=== PATIENT | male | born 1945 | race Caucasian/White ===

== ENCOUNTER → 2016-08-09 19:48 | Outpatient (CLI) | payer MEDICARE, OTHER ==
[2016-02-09 09:49] VITALS: BMI 28.8
[~2016-08-09 19:48] MED LIST: BAYER CHEWABLE81 MG PO; BETAPACE 80 MG80 MG PO; COMBIGAN OPHT DR5 ML EACH EYE; HYDROCODONE-APA1 TAB PO; NEXIUM40 MG PO; PLAVIX75 MG PO; TOPROL XL25 MG PO; ZETIA10 MG PO; ZYRTEC10 MG PO
== END | disposition home or self-care (01) ==
LOC: D.SLEEP 19:48
DX: G47.33 Obstructive sleep apnea (adult) (pediatric) (principal)

== ENCOUNTER 2017-01-21 05:09 | Day surgery (SDC) | payer MEDICARE, OTHER ==
[2017-01-17 14:46] LABS: BASOPHILS 0.3 % (0-2); EOSINOPHILS 4.9 % (0-7); HEMATOCRIT 41.8 % (42.0-54.0); HEMOGLOBIN 13.9 g/dL (13.5-17.5); IMMATURE GRANULOCYTES 0.3 % (0-5); LYMPHOCYTES 21.2 % (15-50); MCH 30.4 pg (26.0-34.0); MCHC 33.3 g/dL (31.0-37.0); MCV 91.5 fL (80.0-100.0); MEAN PLATELET VOLUME 10.3 fL (7.4-10.4); MONOCYTES 5.9 % (2-11); NEUTROPHILS 67.4 % (40-80); PLATELET COUNT 186 10x3/uL (130-400); RBC 4.57 10x6/uL (4.20-6.10); RDW 13.4 % (11.5-14.5); WBC 6.3 10x3/uL (4.8-10.8)
[2017-01-17 15:05] LABS: CALC OSMOLALITY 281 mosm/kg (275-300); CARBON DIOXIDE 28.7 mmol/L (21.0-32.0); CHLORIDE - SERUM 105 mmol/L (98-107); CREATININE - SERUM 0.8 mg/dL (0.6-1.3); GLUCOSE 112 mg/dL (74-106); POTASSIUM - SERUM 4.2 mmol/L (3.5-5.1); SODIUM 140 mmol/L (136-145); UREA NITROGEN 18 mg/dL (7-18); eGFR NON AFRICAN AMERICAN > 90 mL/min (90-120)
[~2017-01-21] VITALS: Ht 190.5 cm; Wt 106.6 kg
[~2017-01-21 05:09] MED LIST changes: +MAGNESIUM OXID500 MG PO; +PREVACID15 MG PO
[2017-01-21] MEDS ORDERED: FLUTICASONE PRO16 GM NASAL (06:45)
[2017-01-21 06:56] VITALS: BP 123/78; Ht 190.5 cm; Wt 106.6 kg
[2017-01-21] MEDS ORDERED: HYDROCODONE-APA1 TAB PO (08:24)
--- NOTE | 2017-01-21 10:40 | NUR ---
1020--PT VOIDS WITHOUT DIFFICULTY, IV DC'D. JUAN DAVID CHO 1040--DISCHARGE INSTRUCTIONS GIVEN, PT VERBALIZES UNDERSTANDING. PT OFF UNIT VIA WC. JUAN DAVID CHO
--- NOTE | 2017-01-24 14:45 | OP ---
PATIENT NAME: TRAV MORAN MEDICAL RECORD: [id number] :43 LOCATION:D.OPS ADMISSION DATE: SURGEON: SHERRY GUERRA MD DATE OF OPERATION: 01/21/2017 PREOPERATIVE DIAGNOSES: 1. Anal fissure. 2. Atrial fibrillation. 3. Hyperlipidemia. 4. Coronary artery disease. 5. Gastroesophageal reflux disease. POSTOPERATIVE DIAGNOSES: 1. Anal fissure. 2. Atrial fibrillation. 3. Hyperlipidemia. 4. Coronary artery disease. 5. Gastroesophageal reflux disease. PROCEDURE: 1. Anal exam under anesthesia. 2. Lateral internal sphincterotomy. SURGEON: Sherry Guerra MD REPORT OF PROCEDURE: The patient was placed in lithotomy position and the perianal region was prepped and draped in sterile fashion. A Hill-Orourke anoscope was inserted and a 360 degree inspection of the anus was performed. There were no signs of any hemorrhoidal tissue present. 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 The lateral internal sphincterotomy was performed in a closed fashion on the left side of the anus at the 3 o'clock position. There was a good release of the internal sphincter musculature. There was no sign of any active bleeding at the conclusion of this. The sentinel piles were then removed using electrocautery. At this point, the anus was irrigated out with normal saline and dilated up with an anal probe. A piece of Gelfoam dipped in [place] was then placed into the anal region and the case was concluded. COMPLICATIONS: None. CONDITION: Stable. ANESTHESIA: General endotracheal. BLOOD LOSS: Minimal. TRANSINT:[id number] Voice Confirmation ID: [id number] DOCUMENT ID: [id number] OPERATIVE REPORT [id number] TRAV MORAN SHERRY GUERRA MD at 1445 CC: VANESSA LUCAS DO [id number] DICTATION DATE: 01/21/17828 WAX PATTERN REPAIRER: 01/21/17 1123 [facility] 01/21/[address] [id number]
== END 2017-01-21 10:40 | disposition home or self-care (01) ==
LOC: D.OPS 05:09 → D.PAN 12:00 → D.OPS 12:00
PROVIDERS: Surgery
DX: K60.2 Anal fissure, unspecified (principal); I25.10 Atherosclerotic heart disease of native coronary artery without angina pectoris; I10 Essential (primary) hypertension; G47.30 Sleep apnea, unspecified; K21.9 Gastro-esophageal reflux disease without esophagitis; I48.0 Paroxysmal atrial fibrillation; E78.5 Hyperlipidemia, unspecified; Z01.812 Encounter for preprocedural laboratory examination

== ENCOUNTER → 2020-06-09 10:44 | Outpatient (CLI) | payer MEDICARE, OTHER ==
[~2020-06-09 10:44] MED LIST changes: +FLUTICASONE PRO16 GM NASAL; +MUCINEX DM ER1 EAC1 PO; +STERAPRED DS 1010 MG PO
[2020-06-09 11:46] LABS: BASOPHILS 0.3 % (0-2); EOSINOPHILS 4.1 % (0-7); HEMATOCRIT 43.6 % (42.0-54.0); HEMOGLOBIN 14.2 g/dL (13.5-17.5); IMMATURE GRANULOCYTES 0.2 % (0-5); LYMPHOCYTE ABS# 1.04 10x3/uL (1.32-3.57); LYMPHOCYTES 17.6 % (15-50); MCH 30.9 pg (26.0-34.0); MCHC 32.6 g/dL (31.0-37.0); MCV 94.8 fL (80.0-100.0); MEAN PLATELET VOLUME 11.1 fL (7.4-10.4); NEUTROPHILS 67.8 % (40-80); RDW 13.7 % (11.5-14.5); WBC 5.9 10x3/uL (4.8-10.8)
[2020-06-09 11:48] LABS: PLATELET COUNT 208 10x3/uL (130-400)
[2020-06-09 12:23] LABS: ALBUMIN 3.8 g/dL (3.4-5.0); ALKALINE PHOSPHATASE 55 U/L (30-120); ALT (SGPT) 28 U/L (10-68); BILIRUBIN - TOTAL 0.55 mg/dL (0.2-1.3); CALC OSMOLALITY 276 mosm/kg (275-300); CALCIUM 9.1 mg/dL (8.5-10.1); CARBON DIOXIDE 29.6 mmol/L (21.0-32.0); CHLORIDE - SERUM 103 mmol/L (98-107); CREATININE - SERUM 0.9 mg/dL (0.6-1.3); GLUCOSE 90 mg/dL (74-106); POTASSIUM - SERUM 4.4 mmol/L (3.5-5.1); SODIUM 139 mmol/L (136-145); T4 THYROXIN - FREE 0.88 ng/dL (0.76-1.46); THYROID STIMULATING HORMONE 0.88 uIU/mL (0.36-3.74); UREA NITROGEN 11 mg/dL (7-18); eGFR NON AFRICAN AMERICAN 87 mL/min (90-120)
[2020-06-09 13:16] LABS: ERYTHROCYTE SEDIMENTATION RATE 3 mm/hr (0-20)
[2020-06-10 08:13] LABS: RAPID PLASMA REAGIN Non Reactive (Non Reactive)
[2020-06-10 09:12] LABS: ANA REFLEX - DBL STRANDED DNA 1 IU/mL (0-9); ANA REFLEX - DIRECT Negative (Negative); ANA REFLEX - SJOGRENS AB SSB <0.2 AI (0.0-0.9)
[2020-06-10 11:11] LABS: SPE - A/G RATIO 1.4 (0.7-1.7); SPE - ALPHA-1 GLOBULIN 0.2 g/dL (0.0-0.4); SPE - ALPHA-2 GLOBULIN 0.7 g/dL (0.4-1.0); SPE - M-SPIKE Not Observed g/dL (Not Observed); SPE - TOTAL PROTEIN 6.9 g/dL (6.0-8.5)
== END | disposition home or self-care (01) ==
LOC: D.LAB 10:44
PROVIDERS: Psychiatry & Neurology Neurology
DX: G60.9 Hereditary and idiopathic neuropathy, unspecified (principal)